=== PATIENT | female | born 1980 ===

== ENCOUNTER 2017-08-08 09:54 | Emergency (ER) | payer BC ==
[2017-08-08 10:13] VITALS: BMI 20.7
[2017-08-08 10:14] VITALS: BP 107/62; PULSE 59; RESP 17; TEMP 98.2; O2SAT 99
[2017-08-08] MEDS ORDERED: Sodium Chloride 0.9% 1,000 ML IV STA (10:35)
[2017-08-08 11:11] LABS: BASO % 1.2 % (0.0-2.0); EOS # 0.2 K/uL (0.0-0.7); EOS % 4.1 % (0.0-4.0); HEMOGLOBIN 13.8 g/dL (12.0-16.0); LYMPH % 24.1 % (20.0-40.0); MEAN CELL VOLUME 92.7 fl (81.0-99.0); MEAN CORPUSCULAR HEMOGLOBIN 30.8 pg (27.0-31.0); MEAN CORPUSCULAR HGB CONC 33.2 g/dL (33.0-37.0); MEAN PLATELET VOLUME 8.9 fl (7.2-11.7); MONO # 0.4 K/uL (0.0-0.8); MONO % 9.6 % (0.0-10.0); NEUT # 2.5 K/uL (1.8-7.0); NRBC % 0.1 % (0.0-0.0); RBC 4.47 Mil/uL (3.80-5.20); RED CELL DISTRIBUTION WIDTH 14.4 % (11.5-14.5)
--- NOTE | 2017-08-08 11:11 | ED PDOC ---
HPI: Abdomen Time Seen by Provider: 08/08/17 10:24 Chief Complaint (Nursing): GI Problem Chief Complaint (Provider): GI Problem History Per: Patient History/Exam Limitations: no limitations Onset/Duration Of Symptoms: Days (5) Current Symptoms Are (Timing): Still Present Additional Complaint(s): 36 year old female presents to the emergency department with a complaint of vomiting, diarrhea, and upper abdominal pain x5 days. States she visited the urgent care on 08/05/2017, and prescribed Zofran and Pepcid. Reports symptoms continued so she saw her primary care doctor on Friday, , who advised her to drink Pepto Bismol along with prescribed medications. Patient says she still has non-bloody diarrhea with generalized weakness and unable to drink or eat sufficiently due to upper abdominal pain. Reports nausea and vomiting had resolved since. Denies fever or chills. Of note, patient is a vegan and a marathon runner and states she is healthy. Reports she traveled to [place] and came back on 07/28/2017 with no symptoms until 7 days later when she started having nausea and vomiting. Past Medical History Reviewed: Historical Data, Nursing Documentation, Vital Signs Vital Signs: Last Vital Signs Temp 98.2 F 08/08/17 10:13 Pulse 59 L 08/08/17 10:13 Resp 17 08/08/17 10:13 BP 107/62 08/08/17 10:13 Pulse Ox 99 08/08/17 14:01 - Medical History PMH: No Chronic Diseases - Surgical History Surgical History: No Surg Hx - Family History Family History: States: Unknown Family Hx - Social History Current smoker - smoking cessation education provided: No Alcohol: None Drugs: Denies - Allergies Allergies/Adverse Reactions: Allergies Allergy/AdvReac Type Severity Reaction Status Date / Time No Known Allergies Allergy Verified 08/08/17 10:30 Review of Systems ROS Statement: Except As Marked, All Systems Reviewed And Found Negative (As per HPI, otherwise negative\) Constitutional: Positive for: Weakness (Generalized), Other (Tired). Negative for: Fever, Chills Gastrointestinal: Positive for: Nausea (Had resovled since), Vomiting (Had resovled since), Abdominal Pain, Diarrhea. Negative for: Hematochezia Physical Exam - Reviewed Nursing Documentation Reviewed: Yes Vital Signs Reviewed: Yes - Physical Exam Appears: Positive for: Well, No Acute Distress Head Exam: Positive for: NORMAL INSPECTION, NORMOCEPHALIC Skin: Positive for: Normal Color, Warm, Dry. Negative for: Rash ENT: Positive for: Normal ENT Inspection (Dry mucous membranes) Cardiovascular/Chest: Positive for: Regular Rate, Rhythm. Negative for: Murmur Respiratory: Positive for: Normal Breath Sounds. Negative for: Accessory Muscle Use, Respiratory Distress Gastrointestinal/Abdominal: Positive for: Tenderness (Mild tenderness to the epigastric region). Negative for: Soft Back: Positive for: Normal Inspection. Negative for: L CVA Tenderness, R CVA Tenderness Extremity: Positive for: Normal ROM. Negative for: Pedal Edema Neurologic/Psych: Positive for: Alert, Oriented (x3). Negative for: Motor/ Sensory Deficits (focal) - Laboratory Results Result Diagrams: 08/08/17 11:01 08/08/17 11:01 - ECG O2 Sat by Pulse Oximetry: 99 (RA) Pulse Ox Interpretation: Normal Medical Decision Making Medical Decision Making: Time: 1035 Initial Impression: Gastroenteritis with dehydration Initial Plan: CMP Lipase Urine Preg and DIP CBC w/ diff Sodium Chloride 1L IV Pepcid 20 mg IVP Reevaluation Scribe~Attestation: Documented by Maite Wakefield, acting as a scribe for Jennifer Herrera MD. Provider Scribe~Attestation: All medical record entries made by the Scribe were at my direction and personally dictated by me. I have reviewed the chart and agree that the record accurately reflects my personal performance of the history, physical exam, medical decision making, and the department course for this patient. I have also personally directed, reviewed, and agree with the discharge instructions and disposition. labs normal. patient is feeling better. will discharge and continue her meds as prescribed. Disposition - Clinical Impression Clinical Impression: Gastroenteritis - Patient ED Disposition Is Patient to be Admitted: No Doctor Will See Patient In The: Office Counseled Patient/Family Regarding: Diagnosis, Need For Followup - Disposition Disposition: Routine/Home Disposition Time: 14:36 Condition: IMPROVED Additional Instructions: Continue medicines as prescribed. Forms: [employer] (Faroese), [facility] ED School/Work Excuse - POA Present On Arrival: None
[2017-08-08 11:25] LABS: ALB/GLOB RATIO 1.4 (1.0-2.1); ALT/SGPT 52 U/L (9-52); AST/SGOT 51 U/L (14-36); BLOOD UREA NITROGEN 7 mg/dl (7-17); GFR AFRICAN-AMERICAN > 60; GFR NON-AFRICAN AMERICAN > 60; LIPASE 67 U/L (23-300)
== END 2017-08-08 14:50 | disposition home or self-care (01) ==
LOC: H.ER 09:54
DX: K52.9 Noninfective gastroenteritis and colitis, unspecified (principal); E86.0 Dehydration
CPT/HCPCS: 80053; 83690; 85025; 96374; 99282; J7040